=== PATIENT | male | born 1965 | race African-American/Black ===

== ENCOUNTER → 2019-06-20 | Outpatient (CLI) | payer BC ==
--- NOTE | 2019-06-21 06:35 | RAD ---
Bilateral shoulders 3 views each. HISTORY: Left shoulder pain, M 25.512. Right shoulder 3 views the right shoulder show slight spurring at the AC joint. There is no fracture or dislocation of the shoulder. There is no acute osseous abnormality. Left shoulder 3 views the left shoulder show calcifications consistent with a calcific tendinitis. There is mild hypertrophic change on the glenoid. There is no fracture. There is mild AC joint arthritis. IMPRESSION: 1. Mild bilateral AC joint arthritis. 2. Calcific tendinitis left shoulder. 3. No fracture or dislocation in either shoulder. Electronically signed by: Oleg Latham MD (06/21/2019 6:32 AM) [facility]
== END | disposition home or self-care (01) ==
LOC: RAD 10:10
PROVIDERS: ATTEND Registered Nurse
DX: M19.012 Primary osteoarthritis, left shoulder (principal); M75.32 Calcific tendinitis of left shoulder
CPT/HCPCS: 73030